=== PATIENT | female | born 1960 | race Caucasian/White ===

== ENCOUNTER 2019-02-23 17:38 | Emergency (ER) | payer OTHER ==
[~2019-02-23] VITALS: Ht 167.6 cm; Wt 63.6 kg
[2019-02-23 17:50] VITALS: BP 128/84
== END 2019-02-23 19:25 | disposition left against medical advice (07) ==
LOC: ER 17:39
DX: R51 Headache (principal); R11.0 Nausea; Z53.21 Procedure and treatment not carried out due to patient leaving prior to being seen by health care provider

== ENCOUNTER 2020-10-31 06:51 | Emergency (ER) | payer BC, MEDICAID ==
[~2020-10-31] VITALS: Ht 165.1 cm; Wt 63.6 kg
[2020-10-31 07:30] VITALS: BP 102/78
[2020-10-31 09:21] LABS: C-REACTIVE PROTEIN 0.73 MG/DL (0.0-0.5)
[2020-10-31 09:34] LABS: BASOPHILS % (AUTO) 0.4 % (0-1); EOSINOPHILS # (AUTO) 0.1 X10'3 (0-0.9); EOSINOPHILS % (AUTO) 1.2 % (0-6); HEMATOCRIT 38.9 % (35.0-45.0); HEMOGLOBIN 13.1 g/dl (12.0-16.0); LYMPHOCYTES # (AUTO) 1.9 X10'3 (1.1-4.8); LYMPHOCYTES % (AUTO) 37.6 % (21-51); MEAN CORPUSCULAR HEMOGLOBIN 30.5 PG (27.0-31.0); MEAN CORPUSCULAR HGB CONC 33.8 g/dL (33.0-36.5); MEAN CORPUSCULAR VOLUME 90.3 FL (78-98); MEAN PLATELET VOLUME 7.6 FL (7.4-10.4); MONOCYTES # (AUTO) 0.5 X10'3 (0-0.9); MONOCYTES % (AUTO) 9.5 % (2-12); NEUTROPHILS # (AUTO) 2.6 X10'3 (1.8-7.7); NEUTROPHILS % (AUTO) 51.3 % (42-75); PLATELET COUNT 357 X10'3 (140-440); RED BLOOD COUNT 4.31 X10'6 (4.20-5.60); RED CELL DISTRIBUTION WIDTH 12.9 % (11.5-14.5)
[2020-10-31 09:43] LABS: ALANINE AMINOTRANSFERASE 12 U/L (12-78); ALBUMIN 3.3 G/DL (3.4-5.0); ALBUMIN/GLOBULIN RATIO 0.8 (1.1-1.5); ALKALINE PHOSPHATASE 55 IU/L (46-116); ANION GAP 8 (8-16); ASPARTATE AMINO TRANSFERASE 24 U/L (10-37); BILIRUBIN,TOTAL 0.4 MG/DL (0.1-1.0); BLOOD UREA NITROGEN 16 MG/DL (7-18); BUN/CREATININE RATIO 23.5 (6.6-38.0); CALCIUM 8.3 MG/DL (8.5-10.1); CHLORIDE 107 MMOL/L (99-107); CREATININE 0.68 MG/DL (0.40-0.90); GLUCOSE 97 MG/DL (70-104); POTASSIUM 4.1 MMOL/L (3.5-5.1); SODIUM 144 MMOL/L (135-145); TOTAL CARBON DIOXIDE 29.4 MMOL/L (24-32); TOTAL PROTEIN 7.2 G/DL (6.4-8.2); eGFR 89 ML/MIN
[2020-10-31] MEDS ORDERED: dexamethasone 4mg tablet PO ONE (10:05)
[2020-10-31] MEDS ORDERED: AZIT250T PO (10:06)
[2020-10-31] MEDS ORDERED: azithromycin 250mg tablet PO ONE (10:10)
--- NOTE | 2020-10-31 10:20 | NUR ---
MEDICATED BY Florecita CONROY RN
== END 2020-10-31 10:22 | disposition home or self-care (01) ==
LOC: ER 06:52
DX: U07.1 COVID-19 (principal); J12.82 Pneumonia due to coronavirus disease 2019; R06.02 Shortness of breath; R21 Rash and other nonspecific skin eruption; Z85.3 Personal history of malignant neoplasm of breast; Z98.890 Other specified postprocedural states; Z88.2 Allergy status to sulfonamides; Z79.2 Long term (current) use of antibiotics
CPT/HCPCS: 36415; 71045; 80053; 84145; 85025; 85379; 86140; 99284

== ENCOUNTER 2022-10-19 03:41 | Emergency (ER) | payer MEDICARE, BC, MEDICAID ==
[~2022-10-19] VITALS: Ht 165.1 cm; Wt 63.0 kg
[2022-10-19 04:11] VITALS: BP 123/72; PULSE 59; RESP 16; TEMP 98.1; O2SAT 99
== END 2022-10-19 07:07 | disposition left against medical advice (07) ==
LOC: ER 03:42
DX: R22.0 Localized swelling, mass and lump, head (principal); Z53.21 Procedure and treatment not carried out due to patient leaving prior to being seen by health care provider
CPT/HCPCS: 99281